=== PATIENT | male | born 1950 | race Caucasian/White ===

== ENCOUNTER 2019-05-15 18:23 | Inpatient (IN) | payer MEDICARE, BC ==
[~2019-05-15] VITALS: Ht 180.3 cm; Wt 154.0 kg
--- NOTE | 2019-05-15 18:23 | NUR ---
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
[2019-05-15 19:00] LABS: BASOPHILS # (AUTO) 0.03 x10^3/uL (0-0.1); BASOPHILS % (AUTO) 0 % (0-1); EOSINOPHILS # (AUTO) 0.05 x10^3/uL (0-0.4); EOSINOPHILS % (AUTO) 0 % (1-7); LYMPHOCYTES # (AUTO) 1.88 x10^3/uL (1-3.4); LYMPHOCYTES % (AUTO) 17 % (22-44); MD NO; MEAN CORPUSCULAR HEMOGLOBIN 29.3 pg (27.5-34.5); MEAN CORPUSCULAR HGB CONC 32.9 g/dL (33.2-36.2); MEAN PLATELET VOLUME 9.9 fL (7.4-10.4); MONOCYTES # (AUTO) 0.66 x10^3/uL (0.2-0.8); MONOCYTES % (AUTO) 6 % (2-9); NEUTROPHILS # (AUTO) 8.74 x10^3/uL (1.8-6.8); NEUTROPHILS % (AUTO) 77 % (42-75); PLATELET COUNT 177 x10^3/uL (130-400); RED BLOOD COUNT 5.96 x10^6/uL (4.38-5.82); RED CELL DISTRIBUTION WIDTH 14.3 % (9.4-14.8)
[2019-05-15] MEDS ORDERED: SODIUM CHLORIDE FLUSH 10ML SYR IVF ONE (19:00)
--- NOTE | 2019-05-15 19:00 | NUR ---
REPORT RECEIVED AND CARE ASSUMED. AFIB ON MONITOR. VSS. DENIES NEEDS AT THIS TIME. 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 NONE ORDERED NOW. CALL LIGHT IN REACH. AWAITING LABS AND FURTHER DISPO.
[2019-05-15 19:05] LABS: ALBUMIN 3.9 g/dL (3.4-5.0); ANION GAP 6 mmol/L (5-15); CALCIUM 8.6 mg/dL (8.5-10.1); CHLORIDE 111 mmol/L (98-107); CREATININE 0.94 mg/dL (0.7-1.3)
[2019-05-15 19:09] LABS: TROPONIN I 0.037 ng/mL (0.000-0.045)
--- NOTE | 2019-05-15 19:20 | NUR ---
Note undone in EDM - 05/15/19 at 2034 by ROLAND REPORT RECEIVED AND CARE ASSUMED. PT REQUESTING MOTRIN FOR MILD TEJEDA--STATES HE IS NOT UNUSUAL FOR HIM. DENIES SI AT THIS TIME. DISCUSSED THAT PT WILL BE IN ER TONIGHT UNTIL A FURTHER PLAN IS DECIDED. PT IS COOPORATIVE WITH STAFF. WARM BLANKETS AND PILLOW GIVEN. DENIES FURTHER NEEDS. ROOM SECURED AND SITTER IN PLACE.
[2019-05-15] MEDS ORDERED: SODIUM CHLORIDE FLUSH 10ML SYR IVF PRN (19:30)
[2019-05-15] MEDS ORDERED: ACETAMINOPHEN 325 MG TABLET PO PRN (20:00)
[2019-05-15] MEDS ORDERED: HEPARIN 25,000 UNITS/500ML PMX 500 ML IV PRN (20:00)
[2019-05-15] MEDS ORDERED: ONDANSETRON ODT 4 MG PO PRN (20:00)
[2019-05-15] MEDS ORDERED: POLYETHYLENE GLYCOL 17 GM PACKET PO PRN (20:00)
[2019-05-15] MEDS ORDERED: BISACODYL 10 MG SUPP PR PRN (20:00)
[2019-05-15] MEDS ORDERED: HEPARIN 5,000 UNITS/ML, 1ML IV ONE (20:00)
[2019-05-15] MEDS ORDERED: HEPARIN 5,000 UNITS/ML, 1ML IV PRN (20:00)
[2019-05-15] MEDS ORDERED: HEPARIN 25,000 UNITS/500ML PMX 500 ML ONE (20:14)
[2019-05-15] MEDS ORDERED: HEPARIN 5,000 UNITS/ML, 1ML ONE (20:15)
--- NOTE | 2019-05-15 20:30 | NUR ---
IV ACCESS OBTAINED AND HEPARIN STARTED VIA PUMP. CONFIRMED DOSE WITH PRETTY PRYOR. PT AWARE OF POC. UP TO BR WITH STEADY GAIT. DENIES COMPLAINTS AT THIS TIME. REMAINS AFIB ON MONITOR.
[2019-05-15] MEDS: AZITHROMYCIN 500 MG in SODIUM CHLORIDE 0.9% 250 ML IV SCH (21:00)
[2019-05-15 21:20] VITALS: BP 153/103
[2019-05-15] MEDS: METOPROLOL TARTRATE 25 MG TABLET PO SCH (23:06)
[2019-05-15] MEDS: SODIUM CHLORIDE FLUSH 10ML SYR IVF SCH (23:07)
[2019-05-15] MEDS ORDERED: ROSU20TA2 PO (23:28)
[2019-05-15 23:29] LABS: MICROSCOPIC AUTO
[2019-05-16 01:59] LABS: TROPONIN I 0.029 ng/mL (0.000-0.045)
[2019-05-16 02:06] VITALS: BP 142/90
[2019-05-16 03:55] LABS: BASOPHILS # (AUTO) 0.04 x10^3/uL (0-0.1); BASOPHILS % (AUTO) 1 % (0-1); EOSINOPHILS # (AUTO) 0.15 x10^3/uL (0-0.4); EOSINOPHILS % (AUTO) 2 % (1-7); LYMPHOCYTES # (AUTO) 1.82 x10^3/uL (1-3.4); LYMPHOCYTES % (AUTO) 25 % (22-44); MD NO; MEAN CORPUSCULAR HGB CONC 33.3 g/dL (33.2-36.2); MEAN CORPUSCULAR VOLUME 90.1 fL (81-97); MEAN PLATELET VOLUME 10.3 fL (7.4-10.4); MONOCYTES % (AUTO) 10 % (2-9); NEUTROPHILS # (AUTO) 4.67 x10^3/uL (1.8-6.8); NEUTROPHILS % (AUTO) 63 % (42-75); PLATELET COUNT 175 x10^3/uL (130-400); RED BLOOD COUNT 5.75 x10^6/uL (4.38-5.82); RED CELL DISTRIBUTION WIDTH 15.2 % (9.4-14.8)
[2019-05-16 07:26] VITALS: BP 151/102
[2019-05-16 08:14] LABS: ALBUMIN 3.5 g/dL (3.4-5.0); ANION GAP 7 mmol/L (5-15); CALCIUM 8.7 mg/dL (8.5-10.1); CHLORIDE 111 mmol/L (98-107); CREATININE 0.93 mg/dL (0.7-1.3)
[2019-05-16 08:17] LABS: ALANINE AMINOTRANSFERASE 46 U/L (12-78); ALKALINE PHOSPHATASE 66 U/L (45-117); BILIRUBIN,TOTAL 1.1 mg/dL (0.2-1.0); TOTAL PROTEIN 7.1 g/dL (6.4-8.2); TROPONIN I 0.041 ng/mL (0.000-0.045)
[2019-05-16] MEDS: SENNA/DOCUSATE TABLET PO SCH (08:51)
[2019-05-16] MEDS: CEFTRIAXONE PMX 1GM/50ML 50 ML IV SCH (08:52)
[2019-05-16] MEDS: SODIUM CHLORIDE FLUSH 10ML SYR IVF SCH ×2 (08:52→21:32)
[2019-05-16] MEDS: METOPROLOL TARTRATE 25 MG TABLET PO SCH ×3 (08:52→21:31)
[2019-05-16] MEDS ORDERED: FUROSEMIDE 20 MG/2 ML IV ONE (10:00)
[2019-05-16] MEDS: APIXABAN 5 MG TABLET PO SCH ×2 (11:10→21:53)
[2019-05-16 13:32] VITALS: BP 133/90
[2019-05-16 17:40] VITALS: BP 123/79
[2019-05-16 19:51] VITALS: BP 148/82
[2019-05-16] MEDS ORDERED: ATORVASTATIN 40 MG TABLET PO SCH (21:00)
[2019-05-16] MEDS: AZITHROMYCIN 500 MG in SODIUM CHLORIDE 0.9% 250 ML IV SCH (21:30)
[2019-05-16 21:40] VITALS: BP 150/80
[2019-05-17 00:54] VITALS: BP 152/94
[2019-05-17 03:08] VITALS: BP 141/76
[2019-05-17] MEDS: METOPROLOL TARTRATE 25 MG TABLET PO SCH (03:13)
[2019-05-17 05:29] LABS: BASOPHILS # (AUTO) 0.03 x10^3/uL (0-0.1); BASOPHILS % (AUTO) 0 % (0-1); EOSINOPHILS # (AUTO) 0.17 x10^3/uL (0-0.4); EOSINOPHILS % (AUTO) 3 % (1-7); LYMPHOCYTES % (AUTO) 28 % (22-44); MD NO; MEAN CORPUSCULAR HEMOGLOBIN 29.6 pg (27.5-34.5); MEAN CORPUSCULAR HGB CONC 32.7 g/dL (33.2-36.2); MEAN CORPUSCULAR VOLUME 90.4 fL (81-97); MEAN PLATELET VOLUME 10.3 fL (7.4-10.4); MONOCYTES # (AUTO) 0.77 x10^3/uL (0.2-0.8); MONOCYTES % (AUTO) 11 % (2-9); NEUTROPHILS # (AUTO) 3.98 x10^3/uL (1.8-6.8); NEUTROPHILS % (AUTO) 58 % (42-75); PLATELET COUNT 172 x10^3/uL (130-400); RED BLOOD COUNT 5.68 x10^6/uL (4.38-5.82)
[2019-05-17 05:37] LABS: ALBUMIN 3.4 g/dL (3.4-5.0); ANION GAP 5 mmol/L (5-15); CALCIUM 8.6 mg/dL (8.5-10.1); CHLORIDE 106 mmol/L (98-107)
[2019-05-17 05:41] LABS: ALANINE AMINOTRANSFERASE 48 U/L (12-78); ALKALINE PHOSPHATASE 63 U/L (45-117); CREATININE 1.24 mg/dL (0.7-1.3); TOTAL PROTEIN 6.9 g/dL (6.4-8.2)
[2019-05-17 06:42] VITALS: BP 130/88
[2019-05-17] MEDS ORDERED: METOPROLOL SUCCINATE 50 MG TAB.ER.24H PO SCH (08:30)
[2019-05-17] MEDS: APIXABAN 5 MG TABLET PO SCH (09:50)
[2019-05-17] MEDS: SENNA/DOCUSATE TABLET PO SCH (09:51)
[2019-05-17] MEDS: CEFTRIAXONE PMX 1GM/50ML 50 ML IV SCH (09:51)
[2019-05-17] MEDS: SODIUM CHLORIDE FLUSH 10ML SYR IVF SCH (09:51)
[2019-05-17] MEDS ORDERED: CEFD300C37 PO (11:29)
[2019-05-17] MEDS ORDERED: DOXY100C2 PO (11:29)
[2019-05-17] MEDS ORDERED: METO-93 PO (11:29)
[2019-05-17] MEDS ORDERED: APIX5TAB PO (11:29)
== END 2019-05-17 13:26 | disposition home or self-care (01) | DRG 291 ==
LOC: ED 19:45 → EDIP 19:49 → 5SO 21:24 → DCLOUNGE 05-17 13:12
PROVIDERS: ADMIT Internal Medicine; ATTEND Hospitalist
PROC: 5A09357 Assistance with Respiratory Ventilation, Less than 24 Consecutive Hours, Continuous Positive Airway Pressure (ICD-10-PCS; principal; 2019-05-16)
PROC: 5A09357 Assistance with Respiratory Ventilation, Less than 24 Consecutive Hours, Continuous Positive Airway Pressure (ICD-10-PCS; 2019-05-17)
DX: I11.0 Hypertensive heart disease with heart failure (principal); J15.9 Unspecified bacterial pneumonia; I50.31 Acute diastolic (congestive) heart failure; D68.69 Other thrombophilia; Z68.42 Body mass index [BMI] 45.0-49.9, adult; I48.91 Unspecified atrial fibrillation; E78.5 Hyperlipidemia, unspecified; D75.1 Secondary polycythemia; G47.33 Obstructive sleep apnea (adult) (pediatric); I71.2 Thoracic aortic aneurysm, without rupture; J30.2 Other seasonal allergic rhinitis; R31.29 Other microscopic hematuria; E66.01 Morbid (severe) obesity due to excess calories; Z96.611 Presence of right artificial shoulder joint; I35.0 Nonrheumatic aortic (valve) stenosis; I20.8 Other forms of angina pectoris; Z79.899 Other long term (current) drug therapy; Z80.0 Family history of malignant neoplasm of digestive organs; Z82.5 Family history of asthma and other chronic lower respiratory diseases; Z87.891 Personal history of nicotine dependence
CPT/HCPCS: 36415; 80048; 80053; 81001; 82040; 83735; 83880; 84100; 84145; 84443; 84484; 85025; 85520; 93005; 96365; C8929; G0378; J0456; J0696; J1644; Q9957; J1940; J7050

== ENCOUNTER 2019-10-16 10:00 | Day surgery (SDC) | payer MEDICARE, BC ==
[~2019-10-16] VITALS: Ht 180.3 cm; Wt 161.0 kg
[~2019-10-16 10:00] MED LIST: APIX5TAB PO; CEFD300C37 PO; DOXY100C2 PO; METO-93 PO; ROSU20TA2 PO
[2019-10-16] MEDS ORDERED: SODIUM CHLORIDE 0.9% 500 ML IV PRN (10:28)
[2019-10-16 10:57] VITALS: BP 159/100
[2019-10-16] MEDS ORDERED: RIVA10TA2 PO (10:57)
[2019-10-16 10:59] LABS: BASOPHILS # (AUTO) 0.03 x10^3/uL (0-0.1); BASOPHILS % (AUTO) 1 % (0-1); EOSINOPHILS # (AUTO) 0.09 x10^3/uL (0-0.4); EOSINOPHILS % (AUTO) 1 % (1-7); LYMPHOCYTES # (AUTO) 1.86 x10^3/uL (1-3.4); LYMPHOCYTES % (AUTO) 31 % (22-44); MD NO; MEAN CORPUSCULAR HEMOGLOBIN 29.8 pg (27.5-34.5); MEAN CORPUSCULAR HGB CONC 32.8 g/dL (33.2-36.2); MEAN CORPUSCULAR VOLUME 90.8 fL (81-97); MEAN PLATELET VOLUME 8.6 fL (7.4-10.4); MONOCYTES # (AUTO) 0.52 x10^3/uL (0.2-0.8); MONOCYTES % (AUTO) 9 % (2-9); NEUTROPHILS % (AUTO) 58 % (42-75); PLATELET COUNT 188 x10^3/uL (130-400); RED BLOOD COUNT 5.23 x10^6/uL (4.38-5.82); RED CELL DISTRIBUTION WIDTH 13.6 % (9.4-14.8)
[2019-10-16] MEDS ORDERED: PLEASE ENTER HEIGHT AND WEIGHT MC SCH (11:00)
[2019-10-16 11:08] LABS: ANION GAP 7 mmol/L (5-15); CALCIUM 8.9 mg/dL (8.5-10.1); CHLORIDE 109 mmol/L (98-107); CREATININE 0.96 mg/dL (0.7-1.3)
[2019-10-16] MEDS ORDERED: PROPOFOL 10 MG/ML, 100ML IV ONE (12:16)
== END 2019-10-16 13:24 | disposition home or self-care (01) ==
LOC: CACL 10:00
PROVIDERS: ATTEND Internal Medicine Cardiovascular Disease
DX: I48.91 Unspecified atrial fibrillation (principal); I35.0 Nonrheumatic aortic (valve) stenosis; I25.10 Atherosclerotic heart disease of native coronary artery without angina pectoris; E78.2 Mixed hyperlipidemia; G47.33 Obstructive sleep apnea (adult) (pediatric); I11.0 Hypertensive heart disease with heart failure; I50.30 Unspecified diastolic (congestive) heart failure; E66.01 Morbid (severe) obesity due to excess calories; Z68.42 Body mass index [BMI] 45.0-49.9, adult; Z79.01 Long term (current) use of anticoagulants; Z79.899 Other long term (current) drug therapy; Z85.51 Personal history of malignant neoplasm of bladder
CPT/HCPCS: 36415; 80048; 85025; 92960; 93005; J2704

== ENCOUNTER → 2020-07-14 | Outpatient (CLI) | payer MEDICARE, BC ==
[~2020-07-14] MED LIST changes: +RIVA10TA2 PO
== END | disposition home or self-care (01) ==
LOC: CVU 11:12
PROVIDERS: ATTEND Internal Medicine Cardiovascular Disease
DX: I08.8 Other rheumatic multiple valve diseases (principal); I11.9 Hypertensive heart disease without heart failure
CPT/HCPCS: 93306

== ENCOUNTER 2020-08-21 06:10 | Day surgery (SDC) | payer MEDICARE, BC ==
[~2020-08-21] VITALS: Ht 180.3 cm; Wt 175.0 kg
[2020-08-21] MEDS ORDERED: FLUT9.9S NS (06:51)
[2020-08-21] MEDS ORDERED: LORA10TA72 PO (06:51)
[2020-08-21] MEDS ORDERED: RIVA20TA PO (06:51)
[2020-08-21] MEDS ORDERED: METO50TA4 PO (06:51)
[2020-08-21] MEDS ORDERED: VALS80TA3 PO (06:51)
[2020-08-21 07:02] LABS: ANION GAP 7 mmol/L (5-15); CALCIUM 8.9 mg/dL (8.5-10.1); CHLORIDE 108 mmol/L (98-107); CREATININE 0.93 mg/dL (0.7-1.3)
[2020-08-21] MEDS ORDERED: PROPOFOL 10 MG/ML, 20ML ONE (07:16)
== END 2020-08-21 08:28 | disposition home or self-care (01) ==
LOC: CACL 06:10
PROVIDERS: ATTEND Internal Medicine Cardiovascular Disease
DX: I48.91 Unspecified atrial fibrillation (principal); I35.0 Nonrheumatic aortic (valve) stenosis; I11.0 Hypertensive heart disease with heart failure; I50.30 Unspecified diastolic (congestive) heart failure; I25.10 Atherosclerotic heart disease of native coronary artery without angina pectoris; E78.2 Mixed hyperlipidemia; G47.33 Obstructive sleep apnea (adult) (pediatric); E66.01 Morbid (severe) obesity due to excess calories; Z68.43 Body mass index [BMI] 50.0-59.9, adult; Z79.01 Long term (current) use of anticoagulants; Z79.899 Other long term (current) drug therapy; Z85.51 Personal history of malignant neoplasm of bladder; Z86.16 Personal history of COVID-19
CPT/HCPCS: 36415; 80048; 92960; 93005; J2704

== ENCOUNTER 2020-10-16 10:40 | Day surgery (SDC) | payer MEDICARE, BC ==
[~2020-10-16] VITALS: Ht 180.3 cm; Wt 165.9 kg
[~2020-10-16 10:40] MED LIST changes: +FLUT9.9S NS; +LORA10TA72 PO; +METO50TA4 PO; +PROPOFOL 10 MG/ML, 20ML ONE; +RIVA20TA PO; +VALS80TA3 PO
[2020-10-16] MEDS ORDERED: AMIO200T42 PO (11:22)
[2020-10-16 11:24] VITALS: BP 186/100
[2020-10-16 11:48] LABS: INTERNATIONAL NORMALIZED RATIO 3.37 (0.93-1.1); PROTHROMBIN TIME 35.2 Seconds (9.6-11.5)
[2020-10-16 12:12] LABS: ANION GAP 6 mmol/L (5-15); CALCIUM 8.5 mg/dL (8.5-10.1); CHLORIDE 111 mmol/L (98-107); CREATININE 1.08 mg/dL (0.7-1.3)
== END 2020-10-16 12:48 | disposition home or self-care (01) ==
LOC: CACL 10:40
PROVIDERS: ATTEND Internal Medicine Clinical Cardiac Electrophysiology
DX: I48.19 Other persistent atrial fibrillation (principal); I11.0 Hypertensive heart disease with heart failure; I50.9 Heart failure, unspecified; I25.10 Atherosclerotic heart disease of native coronary artery without angina pectoris; E78.5 Hyperlipidemia, unspecified; G47.33 Obstructive sleep apnea (adult) (pediatric); Z20.822 Contact with and (suspected) exposure to COVID-19; Z79.01 Long term (current) use of anticoagulants; Z79.899 Other long term (current) drug therapy
CPT/HCPCS: 36415; 80048; 85610; 87635; 92960; 93005; J2704